=== PATIENT | male | born 1985 | race Caucasian/White ===

== ENCOUNTER 2019-09-14 19:10 | Emergency (ER) | payer OTHER ==
[2019-09-14 19:23] VITALS: PULSE 102; RESP 18; TEMP 98
[2019-09-14 19:26] VITALS: BP 124/80
[2019-09-14] MEDS ORDERED: SULFAMETH-TMP DS STARTER PACK 2 TAB BTL PO STA (19:43)
[2019-09-14] MEDS ORDERED: CEPHALEXIN 500MG STARTER PACK 4 CAP BTL PO STA (19:43)
--- NOTE | 2019-09-14 19:51 | ED ---
General Adult HPI - General Chief complaint: Skin/Abscess/Foreign Body Stated complaint: Foreign Abcess on L Hand Time Seen by Provider: 09/14/19 19:24 Source: patient, RN notes reviewed Mode of arrival: ambulatory - History of Present Illness Initial comments: 34-year-old male with a past medical history of hepatitis C presents to the emergency room for abscess of the left hand. Patient states he has had an abscess for about 5 days but has gotten bigger. Patient was seen by [facility] where he had incision and drainage performed. States that it is still draining purulent material and he has been doing warm soapy soaks. However patient has not been taking antibiotic as prescribed. He states that the pharmacy told them he could not fill it. He is not sure which antibiotic this was. He would like another antibiotic sent to a pharmacy. Patient denies any pain with movement of the left fifth digit or wrist. He denies any streaking redness. He denies fevers or chills.Patient has no other complaints at this time including shortness of breath, chest pain, abdominal pain, nausea or vomiting, headache, or visual changes. - Related Data Previous Rx's Medication Instructions Recorded Cephalexin [Keflex] 500 mg PO Q6H 10 Days #40 cap 09/14/19 Sulfamethox-Tmp 800-160Mg [Bactrim 1 tab PO Q12HR #20 tab 09/14/19 DS 800-160 mg] Allergies Allergy/AdvReac Type Severity Reaction Status Date / Time No Known Allergies Allergy Verified 09/14/19 19:22 Review of Systems ROS Statement: Those systems with pertinent positive or pertinent negative responses have been documented in the HPI. ROS Other: All systems not noted in ROS Statement are negative. Past Medical History Additional Past Medical History / Comment(s): hepatitis C History of Any Multi-Drug Resistant Organisms: None Reported Past Surgical History: No Surgical Hx Reported Past Psychological History: ADD/ADHD Smoking Status: Current every day smoker Past Alcohol Use History: None Reported Past Drug Use History: Heroin General Exam General appearance: alert, in no apparent distress Head exam: Present: atraumatic, normocephalic, normal inspection Eye exam: Present: normal appearance, PERRL, EOMI. Absent: scleral icterus, conjunctival injection, periorbital swelling ENT exam: Present: normal exam, mucous membranes moist Neck exam: Present: normal inspection, full ROM. Absent: tenderness, meningismus, lymphadenopathy Respiratory exam: Present: normal lung sounds bilaterally. Absent: respiratory distress, wheezes, rales, rhonchi, stridor Cardiovascular Exam: Present: regular rate, normal rhythm, normal heart sounds. Absent: systolic murmur, diastolic murmur, rubs, gallop, clicks Extremities exam: Present: full ROM (Full range of motion of the left wrist and all digits of the left hand.), normal capillary refill (cap refill less than 2 seconds, radial pulse 2+ in the left upper extremity.), other (Patient has a 1.5 x 1.5 cm abscess of the left hand. This is on the dorsal aspect near the proximal fifth metacarpal. There is no spreading redness. There is no streaking redness. There is no evidence of foreign body. This is actively draining.) Course Vital Signs 09/14/19 09/14/19 19:17 19:26 Temperature 98 F Pulse Rate 102 H Respiratory 18 Rate Blood Pressure 124/80 O2 Sat by Pulse 98 Oximetry Medical Decision Making - Medical Decision Making X-ray of the right hand shows focal soft tissue swelling without fracture or osteomyelitis. No foreign body. Abscess is already freely draining. Patient will be started on antibiotics. I wrote these to a new pharmacy. I discussed following up with primary care as well as reasons for returning such as spreading or streaking redness, difficulty moving the left hand or wrist, or increased swelling. Patient is agreeable to this and will return if he has worsening symptoms. he will be covered for MRSA with Bactrim as well. Disposition Clinical Impression: Abscess Disposition: HOME SELF-CARE Condition: Good Instructions (If sedation given, give patient instructions): Abscess (ED) Additional Instructions: Please continue to do warm soaks. Take antibiotics as directed. Follow-up with your doctor in one to 2 days for a recheck. If you have worsening symptoms such as fevers, spreading or streaking redness, difficulty moving the left hand or wrist, or worsening swelling return to the emergency room. Prescriptions: Sulfamethox-Tmp 800-160Mg [Bactrim DS 800-160 mg] 1 tab PO Q12HR #20 tab Cephalexin [Keflex] 500 mg PO Q6H 10 Days #40 cap Is patient prescribed a controlled substance at d/c from ED?: No Referrals: Obi Arriaga MD [Primary Care Provider] - 1-2 days Time of Disposition: 20:12
--- NOTE | 2019-09-14 19:55 | XR ---
EXAMINATION TYPE: XR hand complete LT DATE OF EXAM: 09/14/2019 COMPARISON: 08/10/2010 HISTORY: Left hand abscess TECHNIQUE: 3 views FINDINGS: There is some soft tissue swelling on the medial aspect of the carpus. The metacarpals are intact. Carpal bones appear intact. I see no fracture nor dislocation. IMPRESSION: Focal soft tissue swelling is a change compared to old exam on the medial aspect of the c arpal bones. No fracture. No sign of osteomyelitis.
== END 2019-09-14 20:40 | disposition home or self-care (01) ==
LOC: EC 19:10
DX: L02.512 Cutaneous abscess of left hand (principal); F17.200 Nicotine dependence, unspecified, uncomplicated
CPT/HCPCS: 99283

== ENCOUNTER 2019-11-05 00:05 | Emergency (ER) | payer OTHER ==
[2019-11-05] MEDS ORDERED: LIDOCAINE 1% INJ 10MG/ML (20 ML MDV) SQ ONE (00:45)
[2019-11-05] MEDS ORDERED: CLINDAMYCIN 150 MG CAP PO STA (01:11)
--- NOTE | 2019-11-05 01:14 | ED ---
Skin/Abscess/FB HPI - General Chief complaint: Skin/Abscess/Foreign Body Stated complaint: possible cyst under right armpit Time Seen by Provider: 11/05/19 00:27 Source: patient Mode of arrival: ambulatory Limitations: no limitations - History of Present Illness Initial comments: 34yo IVDU presenting for right arm pit abscess. States been ongoing x 1 week increasing in size and pain. Patient has dneid fevers, or increased surrounding redness. History of other abscesses in the armpit in the past. Denies injecting in the axillary region in the past. Patient denies chills, general malaise. Denies history of HIV or other history concerning for immune compromise. Denies known MRSA history. - Related Data Previous Rx's Medication Instructions Recorded Cephalexin [Keflex] 500 mg PO Q6H 10 Days #40 cap 09/14/19 Sulfamethox-Tmp 800-160Mg [Bactrim 1 tab PO Q12HR #20 tab 09/14/19 DS 800-160 mg] Clindamycin [Cleocin] 450 mg PO Q8H 7 Days #63 capsule 11/05/19 Allergies Allergy/AdvReac Type Severity Reaction Status Date / Time No Known Allergies Allergy Verified 11/05/19 00:13 Review of Systems ROS Statement: Those systems with pertinent positive or pertinent negative responses have been documented in the HPI. ROS Other: All systems not noted in ROS Statement are negative. Past Medical History Additional Past Medical History / Comment(s): hepatitis C History of Any Multi-Drug Resistant Organisms: None Reported Past Surgical History: No Surgical Hx Reported Past Psychological History: ADD/ADHD Smoking Status: Current every day smoker Past Alcohol Use History: None Reported Past Drug Use History: Heroin General Exam - General Exam Comments Initial Comments: General: The patient is awake and alert, in no distress, and does not appear acutely ill. Eye: Pupils are equal, round and reactive to light, extra-ocular movements are intact. No nystagmus. There is normal conjunctiva bilaterally. No signs of icterus. Ears, nose, mouth and throat: There are moist mucous membranes and no oral lesions. Neck: The neck is supple, there is no tenderness or JVD. Cardiovascular: There is a regular rate and rhythm. No murmur, rub or gallop is appreciated. Respiratory: Lungs are clear to auscultation, respirations are non-labored, breath sounds are equal. No wheezes, stridor, rales, or rhonchi. Musculoskeletal: Normal ROM, no tenderness. Strength 5/5. Sensation intact. Pulses equal bilaterally 2+. Neurological: A&O x 3. CN II-XII intact, There are no obvious motor or sensory deficits. Coordination appears grossly intact. Speech is normal. Skin: Skin is warm and dry and no [id number] fluctuant area nonerythematous of the right axillary region mid Psychiatric: Cooperative, appropriate mood & affect, normal judgment. 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 Site Marked: Yes Site Verified With Patient/Guardian: Yes - Incision & Drainage Consent Obtained: verbal consent Indication: abscess Site: other (axillary) Size (cm): 2 Anesthetic Used: lidocaine 1% Amount (mLs): 1 I&D Cleaning Method: Iodine Sterile Field Used?: No Scalpel Used: #11 Needle Aspiration Performed?: Yes (4cc of puruelnt drainage) Irrigation Performed?: No I&D Drainage Obtained: Pus, Blood Culture Obtained?: Yes Patient Tolerated Procedure: well, no complications Medical Decision Making - Medical Decision Making 29-year-old male presenting today for chief complaint of right axillary abscess initially needle aspiration performed after local anesthetic. After a small incision was made and remaining purulent drainage was expressed. pt tolerated procedure well, bandage applied patient will be discharge with clindamycin and pcp f/u. patient and attending agreeable to care plan and discharge. Disposition Clinical Impression: Axillary abscess Disposition: HOME SELF-CARE Condition: Good Instructions (If sedation given, give patient instructions): Abscess Incision and Drainage (ED), Abscess (ED) Additional Instructions: Please use medication as discussed. Please follow-up with family doctor in the next 2 days Please return to emergency room if the symptoms increase or worsen or for any other concerns. Prescriptions: Clindamycin [Cleocin] 450 mg PO Q8H 7 Days #63 capsule Is patient prescribed a controlled substance at d/c from ED?: No Referrals: None,Stated [Primary Care Provider] - 1-2 days [facility] [NON-STAFF] - 1-2 days Time of Disposition: 01:13
[2019-11-05 01:43] VITALS: BP 116/72; PULSE 84; RESP 18; TEMP 98.2
== END 2019-11-05 01:43 | disposition home or self-care (01) ==
LOC: EC 00:05
DX: L02.411 Cutaneous abscess of right axilla (principal); F17.200 Nicotine dependence, unspecified, uncomplicated
CPT/HCPCS: 87070; 87205; 99283; 10060; J2001; 87077; 87186

== ENCOUNTER 2019-11-07 01:55 | Emergency (ER) | payer OTHER ==
[2019-11-07 02:11] VITALS: BP 129/74; PULSE 101; RESP 18; TEMP 98.2
[2019-11-07] MEDS ORDERED: LIDOCAINE 1% INJ 10MG/ML (20 ML MDV) SQ ONE (02:18)
[2019-11-07 02:34] LABS: Basophils # (A) 0.1 k/uL (0-0.2); Basophils % (A) 1 %; Eosinophils # (A) 0.2 k/uL (0-0.7); Eosinophils % (A) 3 %; HCT 41.5 % (39.0-53.0); HGB 14.3 gm/dL (13.0-17.5); Lymphocytes # (A) 2.4 k/uL (1.0-4.8); Lymphocytes % (A) 28 %; MCH 30.1 pg (25.0-35.0); MCHC 34.5 g/dL (31.0-37.0); MCV 87.3 fL (80.0-100.0); Mean Platelet Volume 7.1; Monocytes # (A) 0.5 k/uL (0-1.0); Monocytes % (A) 6 %; Neutrophils # (A) 5.1 k/uL (1.3-7.7); Neutrophils % (A) 60 %; Platelet Count 310 k/uL (150-450); RBC 4.75 m/uL (4.30-5.90); RDW 12.6 % (11.5-15.5); WBC 8.5 k/uL (3.8-10.6)
[2019-11-07 02:44] LABS: ALT 185 U/L (4-49); AST 125 U/L (17-59); African American GFR (CKD) >90 (>60 ml/min/1.73 sqM); Alkaline Phosphatase 94 U/L (38-126); Anion Gap 4 mmol/L; Blood Urea Nitrogen 12 mg/dL (9-20); Calcium 9.3 mg/dL (8.4-10.2); Carbon Dioxide 31 mmol/L (22-30); Chloride 103 mmol/L (98-107); Glucose 109 mg/dL (74-99); Non-African American GFR(CKD) >90 (>60 ml/min/1.73 sqM); Sodium 138 mmol/L (137-145); Total Bilirubin 0.4 mg/dL (0.2-1.3); Total Protein 7.6 g/dL (6.3-8.2)
[2019-11-07] MEDS ORDERED: SULFAMETH-TMP DS STARTER PACK 2 TAB BTL PO STA (02:53)
--- NOTE | 2019-11-07 02:55 | ED ---
Recheck HPI - General Chief Complaint: Recheck/Abnormal Lab/Rx Stated Complaint: Abscess Time Seen by Provider: 11/07/19 02:11 Source: patient Mode of arrival: ambulatory Limitations: no limitations - History of Present Illness Initial Comments: 34-year-old male presenting today for chief complaint of pain at site of abscess. Patient states he did not fill his clindamycin today he states he has increased redness and pain. Patient states it has been draining spontaneously denies any fevers chills general malaise he denies any chest pain shortness of breath nausea vomiting or additional symptoms. Patient states he has felt fine however there is pain at the site of the abscess. Remaining review of systems negative upon arrival patient appears well nontoxic in no acute distress. - Related Data Previous Rx's Medication Instructions Recorded Cephalexin [Keflex] 500 mg PO Q6H 10 Days #40 cap 09/14/19 Sulfamethox-Tmp 800-160Mg [Bactrim 1 tab PO Q12HR #20 tab 09/14/19 DS 800-160 mg] Clindamycin [Cleocin] 450 mg PO Q8H 7 Days #63 capsule 11/05/19 Sulfamethox-Tmp 800-160Mg [Bactrim 1 tab PO Q12HR 7 Days #14 tab 11/07/19 DS 800-160 mg] Sulfamethox-Tmp 800-160Mg [Bactrim 1 tab PO Q12HR 7 Days #14 tab 11/07/19 DS 800-160 mg] Allergies Allergy/AdvReac Type Severity Reaction Status Date / Time No Known Allergies Allergy Verified 11/07/19 02:11 Review of Systems ROS Statement: Those systems with pertinent positive or pertinent negative responses have been documented in the HPI. ROS Other: All systems not noted in ROS Statement are negative. Past Medical History Additional Past Medical History / Comment(s): hepatitis C History of Any Multi-Drug Resistant Organisms: None Reported Past Surgical History: No Surgical Hx Reported Past Psychological History: ADD/ADHD Smoking Status: Current every day smoker Past Alcohol Use History: None Reported Past Drug Use History: Heroin General Exam - General Exam Comments Initial Comments: General: The patient is awake and alert, in no distress, and does not appear acutely ill. Eye: Pupils are equal, round and reactive to light, extra-ocular movements are intact. No nystagmus. There is normal conjunctiva bilaterally. No signs of icterus. Ears, nose, mouth and throat: There are moist mucous membranes and no oral lesions. Neck: The neck is supple, there is no tenderness or JVD. Cardiovascular: There is a regular rate and rhythm. No murmur, rub or gallop is appreciated. Respiratory: Lungs are clear to auscultation, respirations are non-labored, breath sounds are equal. No wheezes, stridor, rales, or rhonchi. Gastrointestinal: Soft, non-distended, non-tender abdomen without masses or organomegaly noted. There is no rebound or guarding present. Musculoskeletal: Normal ROM, no tenderness. Strength 5/5. Sensation intact. Pulses equal bilaterally 2+. Neurological: A&O x 3. CN II-XII intact, There are no obvious motor or sensory deficits. Coordination appears grossly intact. Speech is normal. Skin: Skin is warm and dry and no rashes or lesions are noted. Axillary abscess, drainage site open, mild surrounding redness Psychiatric: Cooperative, appropriate mood & affect, normal judgment. Limitations: no limitations Course Vital Signs 11/07/19 02:05 Temperature 98.2 F Pulse Rate 101 H Respiratory 18 Rate Blood Pressure 129/74 O2 Sat by Pulse 98 Oximetry Medical Decision Making - Medical Decision Making Patient was noncompliant with the clindamycin he states he only took 150 mg tablet of his girlfriend's old clindamycin he has not filled his prescription. Patient was educated on the importance of compliance with anabolic regimen in order clear infection I also discussed positive MRSA culture. Patient is prescribed Bactrim in case cost is a factor. Labs stable. Afebrile. Does not appear toxic is stable for discharge with PCP f/u. > chrissy agreeable to care plan. - Lab Data Result diagrams: 11/07/19 02:27 11/07/19 02:27 Lab Results 11/07/19 11/07/19 11/07/19 Range/Units 02:27 02:27 02:27 WBC 8.5 (3.8-10.6) k/uL RBC 4.75 (4.30-5.90) m/uL Hgb 14.3 (13.0-17.5) gm/dL Hct 41.5 (39.0-53.0) % MCV 87.3 (80.0-100.0) fL MCH 30.1 (25.0-35.0) pg MCHC 34.5 (31.0-37.0) g/dL RDW 12.6 (11.5-15.5) % Plt Count 310 (150-450) k/uL Neutrophils % 60 % Lymphocytes % 28 % Monocytes % 6 % Eosinophils % 3 % Basophils % 1 % Neutrophils # 5.1 (1.3-7.7) k/uL Lymphocytes # 2.4 (1.0-4.8) k/uL Monocytes # 0.5 (0-1.0) k/uL Eosinophils # 0.2 (0-0.7) k/uL Basophils # 0.1 (0-0.2) k/uL Sodium 138 (137-145) mmol/L Potassium 4.0 (3.5-5.1) mmol/L Chloride 103 (98-107) mmol/L Carbon Dioxide 31 H (22-30) mmol/L Anion Gap 4 mmol/L BUN 12 (9-20) mg/dL Creatinine 0.77 (0.66-1.25) mg/dL Est GFR (CKD-EPI)AfAm >90 (>60 ml/min/1.73 sqM) Est GFR (CKD-EPI)NonAf >90 (>60 ml/min/1.73 sqM) Glucose 109 H (74-99) mg/dL Plasma Lactic Acid Madan 1.0 (0.7-2.0) mmol/L Calcium 9.3 (8.4-10.2) mg/dL Total Bilirubin 0.4 (0.2-1.3) mg/dL AST 125 H (17-59) U/L ALT 185 H (4-49) U/L Alkaline Phosphatase 94 (38-126) U/L Total Protein 7.6 (6.3-8.2) g/dL Albumin 4.0 (3.5-5.0) g/dL Disposition Clinical Impression: Axillary abscess, MRSA (methicillin resistant staph aureus) culture positive, Noncompliance with medications Disposition: HOME SELF-CARE Condition: Good Instructions (If sedation given, give patient instructions): Abscess (ED) Additional Instructions: Please use medication as discussed. Please follow-up with family doctor in the next 2 days. Please return to emergency room if the symptoms increase or worsen or for any other concerns. Prescriptions: Sulfamethox-Tmp 800-160Mg [Bactrim DS 800-160 mg] 1 tab PO Q12HR 7 Days #14 tab Sulfamethox-Tmp 800-160Mg [Bactrim DS 800-160 mg] 1 tab PO Q12HR 7 Days #14 tab Is patient prescribed a controlled substance at d/c from ED?: No Referrals: None,Stated [Primary Care Provider] - 1-2 days Time of Disposition: 02:55
== END 2019-11-07 03:16 | disposition home or self-care (01) ==
LOC: EC 01:55
DX: L02.412 Cutaneous abscess of left axilla (principal); B95.62 Methicillin resistant Staphylococcus aureus infection as the cause of diseases classified elsewhere; F17.200 Nicotine dependence, unspecified, uncomplicated; Z91.14 Patient's other noncompliance with medication regimen
CPT/HCPCS: 36415; 80053; 83605; 85025; 87040; 99283; J2001

== ENCOUNTER 2019-12-02 23:39 | Emergency (ER) | payer OTHER ==
[2019-12-03 00:20] VITALS: BP 117/79; PULSE 98; RESP 18; TEMP 97.3
[2019-12-03] MEDS ORDERED: SODIUM CHLORIDE 0.9% 1,000 ML IV STA (00:33)
--- NOTE | 2019-12-03 00:33 | ED ---
Fever HPI - General Chief Complaint: Fever Stated Complaint: Weakness Time Seen by Provider: 12/03/19 00:33 Source: patient Mode of arrival: ambulatory Limitations: no limitations - History of Present Illness Initial Comments: Abel is a pleasant 34-year-old gentleman with a history of narcotic abuse who presents the ER today requesting a work note. Patient states he's just been feeling weak all week, he hasn't had much appetite, he is withdrawing from narcotics with the plan to enroll in a detox program on Thursday. Patient states that he's been unable to go to work due to feeling so ill this week and he needs a work note. Patient states yesterday he had a fever of 100.6 but it went down after antipyretics. No fevers today. No other complaints. - Related Data Previous Rx's Medication Instructions Recorded Cephalexin [Keflex] 500 mg PO Q6H 10 Days #40 cap 09/14/19 Sulfamethox-Tmp 800-160Mg [Bactrim 1 tab PO Q12HR #20 tab 09/14/19 DS 800-160 mg] Clindamycin [Cleocin] 450 mg PO Q8H 7 Days #63 capsule 11/05/19 Sulfamethox-Tmp 800-160Mg [Bactrim 1 tab PO Q12HR 7 Days #14 tab 11/07/19 DS 800-160 mg] Sulfamethox-Tmp 800-160Mg [Bactrim 1 tab PO Q12HR 7 Days #14 tab 11/07/19 DS 800-160 mg] Allergies Allergy/AdvReac Type Severity Reaction Status Date / Time No Known Allergies Allergy Verified 12/03/19 00:20 Review of Systems ROS Statement: Those systems with pertinent positive or pertinent negative responses have been documented in the HPI. ROS Other: All systems not noted in ROS Statement are negative. Past Medical History Additional Past Medical History / Comment(s): hepatitis C History of Any Multi-Drug Resistant Organisms: MRSA Date of last positivie culture/infection: 2019 MDRO Source:: [facility] Past Surgical History: No Surgical Hx Reported Past Psychological History: ADD/ADHD Smoking Status: Current every day smoker Past Alcohol Use History: None Reported Past Drug Use History: Heroin General Exam - General Exam Comments Initial Comments: Physical Exam GENERAL: Patient is well-developed and well-nourished. Patient is nontoxic and well- hydrated and is in no distress. HENT: Normocephalic, Atraumatic. EYES: PERRL, EOMI PULMONARY: Unlabored respirations. No audible rales rhonchi or wheezing was noted. CARDIOVASCULAR: There is a regular rate and rhythm without any murmurs gallops or rubs. ABDOMEN: Soft and nontender with normal bowel sounds. No hepatosplenomegaly SKIN: Skin is clear with no lesions or rashes and otherwise unremarkable. : Deferred NEUROLOGIC: Patient is alert and oriented x3. Moving all extremities spontaneously MUSCULOSKELETAL: Normal extremities with adequate strength and full range of motion. No lower extremity swelling or edema. No calf tenderness. PSYCHIATRIC: Normal psychiatric evaluation. Limitations: no limitations Course Vital Signs 12/03/19 00:15 Temperature 97.3 F L Pulse Rate 98 Respiratory 18 Rate Blood Pressure 117/79 O2 Sat by Pulse 98 Oximetry Medical Decision Making - Medical Decision Making The patient was seen and evaluated history was obtained from the patient History and physical exam are consistent with acute narcotic withdrawal as the patient has generalized malaise he states he's been through this multiple times in the past Patient requesting a work note also requesting a basic blood work be obtained to assess liver function CBC and CMP were ordered Patient be discharged home advised that I will contact him with any significant abnormalities noted on his labs - Lab Data Result diagrams: 12/03/19 01:25 12/03/19 01:25 Lab Results 12/03/19 12/03/19 Range/Units 01:25 01:25 WBC 6.2 (3.8-10.6) k/uL RBC 4.54 (4.30-5.90) m/uL Hgb 14.4 (13.0-17.5) gm/dL Hct 41.4 (39.0-53.0) % MCV 91.1 (80.0-100.0) fL MCH 31.7 (25.0-35.0) pg MCHC 34.9 (31.0-37.0) g/dL RDW 12.8 (11.5-15.5) % Plt Count 218 (150-450) k/uL Neutrophils % 59 % Lymphocytes % 29 % Monocytes % 6 % Eosinophils % 4 % Basophils % 1 % Neutrophils # 3.6 (1.3-7.7) k/uL Lymphocytes # 1.8 (1.0-4.8) k/uL Monocytes # 0.4 (0-1.0) k/uL Eosinophils # 0.2 (0-0.7) k/uL Basophils # 0.1 (0-0.2) k/uL Sodium 138 (137-145) mmol/L Potassium 4.2 (3.5-5.1) mmol/L Chloride 106 (98-107) mmol/L Carbon Dioxide 27 (22-30) mmol/L Anion Gap 5 mmol/L BUN 16 (9-20) mg/dL Creatinine 0.69 (0.66-1.25) mg/dL Est GFR (CKD-EPI)AfAm >90 (>60 ml/min/1.73 sqM) Est GFR (CKD-EPI)NonAf >90 (>60 ml/min/1.73 sqM) Glucose 127 H (74-99) mg/dL Calcium 9.1 (8.4-10.2) mg/dL Total Bilirubin 0.5 (0.2-1.3) mg/dL AST 135 H (17-59) U/L ALT 188 H (4-49) U/L Alkaline Phosphatase 82 (38-126) U/L Total Protein 7.1 (6.3-8.2) g/dL Albumin 3.8 (3.5-5.0) g/dL Disposition Clinical Impression: Narcotic withdrawal Disposition: HOME SELF-CARE Condition: Stable Additional Instructions: Congratulations on quitting Narcotics Make sure you are drinking plenty of fluids and staying hydrated Return to the ER if you have any worsening symptoms Is patient prescribed a controlled substance at d/c from ED?: No Referrals: None,Stated [Primary Care Provider] - 1-2 days
[2019-12-03 01:37] LABS: Basophils # (A) 0.1 k/uL (0-0.2); Basophils % (A) 1 %; Eosinophils # (A) 0.2 k/uL (0-0.7); Eosinophils % (A) 4 %; HCT 41.4 % (39.0-53.0); HGB 14.4 gm/dL (13.0-17.5); Lymphocytes # (A) 1.8 k/uL (1.0-4.8); Lymphocytes % (A) 29 %; MCH 31.7 pg (25.0-35.0); MCHC 34.9 g/dL (31.0-37.0); MCV 91.1 fL (80.0-100.0); Mean Platelet Volume 6.9; Monocytes # (A) 0.4 k/uL (0-1.0); Monocytes % (A) 6 %; Neutrophils # (A) 3.6 k/uL (1.3-7.7); Neutrophils % (A) 59 %; Platelet Count 218 k/uL (150-450); RBC 4.54 m/uL (4.30-5.90); RDW 12.8 % (11.5-15.5); WBC 6.2 k/uL (3.8-10.6)
[2019-12-03 01:46] LABS: ALT 188 U/L (4-49); AST 135 U/L (17-59); African American GFR (CKD) >90 (>60 ml/min/1.73 sqM); Albumin 3.8 g/dL (3.5-5.0); Alkaline Phosphatase 82 U/L (38-126); Anion Gap 5 mmol/L; Blood Urea Nitrogen 16 mg/dL (9-20); Calcium 9.1 mg/dL (8.4-10.2); Carbon Dioxide 27 mmol/L (22-30); Chloride 106 mmol/L (98-107); Glucose 127 mg/dL (74-99); Non-African American GFR(CKD) >90 (>60 ml/min/1.73 sqM); Potassium 4.2 mmol/L (3.5-5.1); Sodium 138 mmol/L (137-145); Total Bilirubin 0.5 mg/dL (0.2-1.3); Total Protein 7.1 g/dL (6.3-8.2)
== END 2019-12-03 01:30 | disposition home or self-care (01) ==
LOC: EC 23:39
DX: F11.23 Opioid dependence with withdrawal (principal); F17.200 Nicotine dependence, unspecified, uncomplicated; Z86.14 Personal history of Methicillin resistant Staphylococcus aureus infection; Z86.19 Personal history of other infectious and parasitic diseases
CPT/HCPCS: 36415; 80053; 85025; 99283

== ENCOUNTER 2020-05-26 23:12 | Emergency (ER) | payer OTHER ==
[2020-05-26 23:21] VITALS: BP 114/72; PULSE 91; RESP 16; TEMP 97.9
[2020-05-27] MEDS ORDERED: SULFAMETH-TMP DS STARTER PACK 2 TAB BTL PO STA (00:16)
[2020-05-27] MEDS ORDERED: CEPHALEXIN 500MG STARTER PACK 4 CAP BTL PO STA (00:17)
--- NOTE | 2020-05-27 00:17 | ED ---
Skin/Abscess/FB HPI - General Chief complaint: Skin/Abscess/Foreign Body Stated complaint: Leg Abscess/poss infection Time Seen by Provider: 05/26/20 23:57 Source: patient Mode of arrival: wheelchair Limitations: no limitations - History of Present Illness Initial comments: 34-year-old male presenting today for chief complaint of left upper thigh abscess. Patient states that he had an abscess to his left upper thigh he states in the bathtub he is able squeeze a "ton of pus out of it". Patient states he believes he has got all the purulent drainage out. He denies fevers chills general malaise. Patient states he does have a history of MRSA infection. Patient denies any injury to this area foreign body he denies additional complaints and upon arrival he appears nontoxic in no acute distress - Related Data Previous Rx's Medication Instructions Recorded Cephalexin [Keflex] 500 mg PO Q6H 10 Days #40 cap 09/14/19 Sulfamethox-Tmp 800-160Mg [Bactrim 1 tab PO Q12HR #20 tab 09/14/19 DS 800-160 mg] Clindamycin [Cleocin] 450 mg PO Q8H 7 Days #63 capsule 11/05/19 Sulfamethox-Tmp 800-160Mg [Bactrim 1 tab PO Q12HR 7 Days #14 tab 11/07/19 DS 800-160 mg] Sulfamethox-Tmp 800-160Mg [Bactrim 1 tab PO Q12HR 7 Days #14 tab 11/07/19 DS 800-160 mg] Cephalexin [Keflex] 500 mg PO Q6HR 10 Days #40 cap 05/27/20 Sulfamethox-Tmp 800-160Mg [Bactrim 1 tab PO Q12HR 10 Days #20 tab 05/27/20 DS 800-160 mg] Allergies Allergy/AdvReac Type Severity Reaction Status Date / Time No Known Allergies Allergy Verified 05/26/20 23:15 Review of Systems ROS Statement: Those systems with pertinent positive or pertinent negative responses have been documented in the HPI. ROS Other: All systems not noted in ROS Statement are negative. Past Medical History Additional Past Medical History / Comment(s): hepatitis C History of Any Multi-Drug Resistant Organisms: MRSA Date of last positivie culture/infection: 2019 MDRO Source:: [facility]su Past Surgical History: No Surgical Hx Reported Past Psychological History: ADD/ADHD Smoking Status: Current every day smoker Past Alcohol Use History: Occasional Past Drug Use History: Heroin General Exam - General Exam Comments Initial Comments: General: The patient is awake and alert, in no distress, and does not appear acutely ill. Eye: Pupils are equal, round and reactive to light, extra-ocular movements are intact. No nystagmus. There is normal conjunctiva bilaterally. No signs of icterus. Cardiovascular: There is a regular rate and rhythm. No murmur, rub or gallop is appreciated. Respiratory: Lungs are clear to auscultation, respirations are non-labored, breath sounds are equal. No wheezes, stridor, rales, or rhonchi. Musculoskeletal: Normal ROM, no tenderness. Strength 5/5. Sensation intact. Pulses equal bilaterally 2+. Neurological: A&O x 3. CN II-XII intact, There are no obvious motor or sensory deficits. Coordination appears grossly intact. Speech is normal. Skin: Skin is warm and dry and no rashes. small opening left mid/inner thigh. surrounding induration, no fluctuance, mild surrounding redness Psychiatric: Cooperative, appropriate mood & affect, normal judgment. Limitations: no limitations Course Vital Signs 05/26/20 23:16 Temperature 97.9 F Pulse Rate 91 Respiratory 16 Rate Blood Pressure 114/72 O2 Sat by Pulse 97 Oximetry Medical Decision Making - Medical Decision Making Patient proceed to show me a video and expressing the purulent drainage from the abscess of the left upper thigh. There is currently an opening as access for drainage. Patient has mild surrounding cellulitis at this time I feel patient is stable for discharge with oral antibiotic and return for any worsening swelling and pain or fevers patient is agreeable to this care plan as well as discharge at this time. Patient refused incision and drainage. Stating that he believes he has gotten all of the purulence out. pt does not appear toxic. covered for MRSA with hx. Dr lowe agreeable to care plan and discharge. Disposition Clinical Impression: Abscess or cellulitis of thigh Disposition: HOME SELF-CARE Condition: Good Instructions (If sedation given, give patient instructions): Abscess Incision and Drainage (ED), Abscess (ED) Additional Instructions: Please use medication as discussed. Please follow-up with family doctor in the next 2 days Please return to emergency room if the symptoms increase or worsen or for any other concerns. Prescriptions: Sulfamethox-Tmp 800-160Mg [Bactrim DS 800-160 mg] 1 tab PO Q12HR 10 Days #20 tab Cephalexin [Keflex] 500 mg PO Q6HR 10 Days #40 cap Is patient prescribed a controlled substance at d/c from ED?: No Referrals: None,Stated [Primary Care Provider] - 1-2 days Time of Disposition: 00:17
== END 2020-05-27 00:48 | disposition home or self-care (01) ==
LOC: EC 23:12
DX: L03.116 Cellulitis of left lower limb (principal); F17.200 Nicotine dependence, unspecified, uncomplicated; F90.9 Attention-deficit hyperactivity disorder, unspecified type
CPT/HCPCS: 99282

== ENCOUNTER 2020-07-17 20:54 | Emergency (ER) | payer OTHER ==
[2020-07-17 21:04] VITALS: BP 130/81; PULSE 85; RESP 18; TEMP 98
[2020-07-17] MEDS ORDERED: ONDANSETRON 4 MG/2 ML VIAL IVP STA (21:37)
[2020-07-17] MEDS ORDERED: SODIUM CHLORIDE 0.9% 1,000 ML IV STA (21:37)
[2020-07-17 22:11] LABS: Basophils % (A) 1 %; Eosinophils # (A) 0.3 k/uL (0-0.7); Eosinophils % (A) 5 %; HCT 39.1 % (39.0-53.0); HGB 13.8 gm/dL (13.0-17.5); Lymphocytes # (A) 1.7 k/uL (1.0-4.8); Lymphocytes % (A) 25 %; MCH 30.9 pg (25.0-35.0); MCHC 35.2 g/dL (31.0-37.0); MCV 87.9 fL (80.0-100.0); Mean Platelet Volume 7.3; Monocytes # (A) 0.4 k/uL (0-1.0); Monocytes % (A) 6 %; Neutrophils # (A) 4.3 k/uL (1.3-7.7); Neutrophils % (A) 63 %; Platelet Count 179 k/uL (150-450); RBC 4.45 m/uL (4.30-5.90); RDW 12.2 % (11.5-15.5); WBC 6.8 k/uL (3.8-10.6)
[2020-07-17 22:30] LABS: ALT 119 U/L (4-49); AST 104 U/L (17-59); African American GFR (CKD) >90 (>60 ml/min/1.73 sqM); Albumin 3.8 g/dL (3.5-5.0); Alkaline Phosphatase 88 U/L (38-126); Anion Gap 6 mmol/L; Blood Urea Nitrogen 8 mg/dL (9-20); Calcium 9.2 mg/dL (8.4-10.2); Carbon Dioxide 28 mmol/L (22-30); Chloride 104 mmol/L (98-107); Glucose 90 mg/dL (74-99); Lipase 48 U/L (23-300); Non-African American GFR(CKD) >90 (>60 ml/min/1.73 sqM); Potassium 3.9 mmol/L (3.5-5.1); Sodium 138 mmol/L (137-145); Total Bilirubin 0.3 mg/dL (0.2-1.3); Total Protein 6.7 g/dL (6.3-8.2)
--- NOTE | 2020-07-17 23:23 | ED ---
Nausea/Vomiting/Diarrhea HPI - General Chief complaint: Nausea/Vomiting/Diarrhea Stated complaint: N/V/D Time Seen by Provider: 07/17/20 21:11 Source: patient Mode of arrival: ambulatory Limitations: no limitations - History of Present Illness Initial comments: 34-year-old male patient presents to the emergency department today for evaluation of nausea and vomiting. States that he stopped doing heroin roughly 2 days ago. States that he has been unable to keep down any food or fluids today. Denies any abdominal pain. Denies fever or chills. States he feels somewhat restless. Denies any hematochezia, melena, hematemesis. Denies any constipation or diarrhea. Patient denies any recent rash, cough, shortness of breath, chest pain, back pain, numbness, tingling, dizziness, weakness, hematuria, dysuria, urinary urgency, urinary frequency, headache, visual changes, or any other complaints. - Related Data Previous Rx's Medication Instructions Recorded Ondansetron [Zofran ODT] 4 mg PO Q8HR PRN #10 tab 07/17/20 Allergies Allergy/AdvReac Type Severity Reaction Status Date / Time No Known Allergies Allergy Verified 07/17/20 21:37 Review of Systems ROS Statement: Those systems with pertinent positive or pertinent negative responses have been documented in the HPI. ROS Other: All systems not noted in ROS Statement are negative. Past Medical History Additional Past Medical History / Comment(s): hepatitis C History of Any Multi-Drug Resistant Organisms: MRSA Date of last positivie culture/infection: 2019 MDRO Source:: R aracelis Past Surgical History: No Surgical Hx Reported Past Psychological History: ADD/ADHD Smoking Status: Current every day smoker Past Alcohol Use History: Occasional Past Drug Use History: Heroin General Exam Limitations: no limitations General appearance: alert, in no apparent distress, other (This is a well developed, well nourished adult male patient in no acute distress. ) Eye exam: Present: normal appearance, PERRL, EOMI. Absent: scleral icterus, conjunctival injection, periorbital swelling ENT exam: Present: normal exam, normal oropharynx, mucous membranes moist Respiratory exam: Present: normal lung sounds bilaterally. Absent: respiratory distress, wheezes, rales, rhonchi, stridor Cardiovascular Exam: Present: regular rate, normal rhythm, normal heart sounds. Absent: systolic murmur, diastolic murmur, rubs, gallop, clicks GI/Abdominal exam: Present: soft, normal bowel sounds. Absent: distended, tenderness, guarding, rebound, rigid Neurological exam: Present: alert, oriented X3, CN II-XII intact Psychiatric exam: Present: normal affect, normal mood Skin exam: Present: warm, dry, intact, normal color. Absent: rash Course Vital Signs 07/17/20 21:02 Temperature 98 F Pulse Rate 85 Respiratory 18 Rate Blood Pressure 130/81 O2 Sat by Pulse 100 Oximetry Medical Decision Making - Medical Decision Making 34-year-old male patient presents to the emergency department today for evaluation of nausea and vomiting. States he stopped doing here in 2 days ago. He is requesting something for nausea and work note for the next couple of days. Physical examination is unremarkable. Abdomen soft and nontender. Vital signs within normal ranges. Labs reviewed and were unremarkable. He was given Zofran and IV fluids. Upon reevaluation he states he is feeling somewhat better. He'll be discharged prescription for Zofran. Given work note. Instructed to follow-up with his primary care physician for recheck in 1-2 days. Return parameters discussed in detail. He verbalizes understanding and agrees with this plan. My attending Dr. Gutierrez. - Lab Data Result diagrams: 07/17/20 22:03 07/17/20 22:03 Lab Results 07/17/20 07/17/20 Range/Units 22:03 22:03 WBC 6.8 (3.8-10.6) k/uL RBC 4.45 (4.30-5.90) m/uL Hgb 13.8 (13.0-17.5) gm/dL Hct 39.1 (39.0-53.0) % MCV 87.9 (80.0-100.0) fL MCH 30.9 (25.0-35.0) pg MCHC 35.2 (31.0-37.0) g/dL RDW 12.2 (11.5-15.5) % Plt Count 179 (150-450) k/uL MPV 7.3 Neutrophils % 63 % Lymphocytes % 25 % Monocytes % 6 % Eosinophils % 5 % Basophils % 1 % Neutrophils # 4.3 (1.3-7.7) k/uL Lymphocytes # 1.7 (1.0-4.8) k/uL Monocytes # 0.4 (0-1.0) k/uL Eosinophils # 0.3 (0-0.7) k/uL Basophils # 0.0 (0-0.2) k/uL Sodium 138 (137-145) mmol/L Potassium 3.9 (3.5-5.1) mmol/L Chloride 104 (98-107) mmol/L Carbon Dioxide 28 (22-30) mmol/L Anion Gap 6 mmol/L BUN 8 L (9-20) mg/dL Creatinine 0.61 L (0.66-1.25) mg/dL Est GFR (CKD-EPI)AfAm >90 (>60 ml/min/1.73 sqM) Est GFR (CKD-EPI)NonAf >90 (>60 ml/min/1.73 sqM) Glucose 90 (74-99) mg/dL Calcium 9.2 (8.4-10.2) mg/dL Total Bilirubin 0.3 (0.2-1.3) mg/dL AST 104 H (17-59) U/L ALT 119 H (4-49) U/L Alkaline Phosphatase 88 (38-126) U/L Total Protein 6.7 (6.3-8.2) g/dL Albumin 3.8 (3.5-5.0) g/dL Lipase 48 (23-300) U/L Disposition Clinical Impression: Heroin withdrawal, Nausea and vomiting Disposition: HOME SELF-CARE Condition: Good Instructions (If sedation given, give patient instructions): Acute Nausea and Vomiting (ED), Opioid Withdrawal (ED) Additional Instructions: Take medications as directed. Increase fluids. Rest. Follow-up through primary care physician for recheck in 1-2 days. Return for any new, worsening, or concerning symptoms. Prescriptions: Ondansetron [Zofran ODT] 4 mg PO Q8HR PRN #10 tab PRN Reason: Nausea Is patient prescribed a controlled substance at d/c from ED?: No Referrals: None,Stated [Primary Care Provider] - 1-2 days Time of Disposition: 23:23
== END 2020-07-17 23:32 | disposition home or self-care (01) ==
LOC: EC 20:54
DX: F11.23 Opioid dependence with withdrawal (principal); R11.2 Nausea with vomiting, unspecified; F17.200 Nicotine dependence, unspecified, uncomplicated
CPT/HCPCS: 80053; 83690; 85025; 99283; 96374; 96361; J2405

== ENCOUNTER 2020-09-09 17:10 | Emergency (ER) | payer OTHER ==
[2020-09-09 17:24] VITALS: TEMP 98
[2020-09-09] MEDS ORDERED: KETOROLAC 15 MG/ML 1 ML VIAL IM STA (17:34)
[2020-09-09] MEDS ORDERED: BACITRACIN OINT 1 EACH PACKET TOPICAL ONE (17:34)
[2020-09-09] MEDS ORDERED: MORPHINE SULFATE 4 MG/ML SYRINGE IM STA (17:34)
--- NOTE | 2020-09-09 17:38 | ED ---
General Adult HPI - General Chief complaint: Burn/Smoke Inhalation Stated complaint: burn on hand/wrist Time Seen by Provider: 09/09/20 17:32 Source: patient, RN notes reviewed, old records reviewed Mode of arrival: ambulatory Limitations: no limitations - History of Present Illness Initial comments: 35 -year-old male presenting for burn to his left wrist. He had been working on his car, opened the antifreeze from the radiator and had some splatter underneath of his glove which he was wearing. He had a burn to the wrist about one hour prior to arrival. This is only on one side and has no other injuries reported. Patient states his tetanus is up-to-date, 2 years ago. - Related Data Previous Rx's Medication Instructions Recorded Ondansetron [Zofran ODT] 4 mg PO Q8HR PRN #10 tab 07/17/20 Ibuprofen [Motrin] 600 mg PO Q8HR PRN #24 tab 09/09/20 Allergies Allergy/AdvReac Type Severity Reaction Status Date / Time No Known Allergies Allergy Verified 07/17/20 21:37 Review of Systems ROS Statement: Those systems with pertinent positive or pertinent negative responses have been documented in the HPI. ROS Other: All systems not noted in ROS Statement are negative. Past Medical History Additional Past Medical History / Comment(s): hepatitis C History of Any Multi-Drug Resistant Organisms: MRSA Date of last positivie culture/infection: 2019 MDRO Source:: Gayla [facility]su Past Surgical History: No Surgical Hx Reported Past Psychological History: ADD/ADHD Smoking Status: Current every day smoker Past Alcohol Use History: Occasional Past Drug Use History: Heroin General Exam Limitations: no limitations General appearance: alert, in no apparent distress Head exam: Present: atraumatic, normocephalic Eye exam: Present: normal appearance, PERRL ENT exam: Present: normal exam Neck exam: Present: normal inspection. Absent: tenderness, meningismus Respiratory exam: Present: normal lung sounds bilaterally. Absent: respiratory distress, wheezes Cardiovascular Exam: Present: regular rate, normal rhythm GI/Abdominal exam: Present: soft, distended Extremities exam: Present: other (There is an area approximately 3 cm x 6 cm on the palmar surface of the left wrist which is a first-degree burn with one isolated less than 1 cm blister consistent with a second-degree burn) Course Vital Signs 09/09/20 17:21 Temperature 98 F Pulse Rate 80 Respiratory 20 Rate Blood Pressure 123/69 O2 Sat by Pulse 97 Oximetry Medical Decision Making - Medical Decision Making 35 yo male with first-degree burn to the left wrist and a 6 mm round round blister consistent with second-degree burn. Dressing applied, patient started to apply small amount of antibiotic ointment. Given Motrin for pain control. Disposition Clinical Impression: 2nd degree burn Disposition: HOME SELF-CARE Condition: Good Instructions (If sedation given, give patient instructions): Second Degree Burn (ED) Prescriptions: Ibuprofen [Motrin] 600 mg PO Q8HR PRN #24 tab PRN Reason: Pain Is patient prescribed a controlled substance at d/c from ED?: No Referrals: Logan Zhang MD [Primary Care Provider] - 1-2 days Time of Disposition: 17:50
[2020-09-09 18:46] VITALS: BP 118/76; PULSE 72; RESP 18
== END 2020-09-09 19:08 | disposition home or self-care (01) ==
LOC: EC 17:10
DX: T23.272A Burn of second degree of left wrist, initial encounter (principal); F17.200 Nicotine dependence, unspecified, uncomplicated; X16.XXXA Contact with hot heating appliances, radiators and pipes, initial encounter
CPT/HCPCS: 99283; 16020; 96372; J1885